=== PATIENT | female | born 1950 | race Hispanic/Latino ===

== ENCOUNTER 2018-10-16 19:58 | Emergency (ER) | payer OTHER ==
[2018-10-16] MEDS ORDERED: ACETAMINOPHEN EXTRA STRENGTH 500 MG TABLET ONE (20:19)
== END 2018-10-16 21:20 | disposition home or self-care (01) ==
LOC: EDH 19:58
DX: S82.831A Other fracture of upper and lower end of right fibula, initial encounter for closed fracture (principal); I10 Essential (primary) hypertension; E78.5 Hyperlipidemia, unspecified; E07.9 Disorder of thyroid, unspecified; Z90.710 Acquired absence of both cervix and uterus; Z88.0 Allergy status to penicillin; X58.XXXA Exposure to other specified factors, initial encounter; Y93.89 Activity, other specified; Y92.89 Other specified places as the place of occurrence of the external cause; Y99.8 Other external cause status
CPT/HCPCS: 29515; 73610

== ENCOUNTER 2019-12-10 04:52 | Emergency (ER) | payer OTHER ==
[2019-12-10 05:09] LABS: BASOPHILS % (AUTO) 0.4 % (0.0-5.0); EOSINOPHILS % (AUTO) 0.3 % (0.0-8.0); HEMATOCRIT 43.3 % (36-48); LYMPHOCYTES % (AUTO) 10.5 % (21.0-51.0); MEAN CORPUSCULAR HEMOGLOBIN 31.8 pg (27.0-33.0); MEAN CORPUSCULAR HGB CONC 33.7 g/dL (32.0-36.0); MEAN CORPUSCULAR VOLUME 94.3 fL (79-99); MONOCYTES % (AUTO) 3.6 % (3.0-13.0); NEUTROPHILS % (AUTO) 84.8 % (40.0-77.0); PLATELET COUNT (AUTO) 228 K/uL (130-400); RED BLOOD CELL COUNT(AUTO) 4.59 MIL/uL (4.00-5.50); RED CELL DISTRIBUTION WIDTH 11.8 % (11.0-15.5); WHITE BLOOD COUNT (AUTO) 13.9 K/uL (4.8-10.8)
[2019-12-10 05:24] LABS: CREATININE 0.8 mg/dL (0.5-1.5); POTASSIUM 4.4 mmol/L (3.5-5.1)
[2019-12-10 05:28] LABS: ALBUMIN 4.3 g/dL (3.5-5.0); BILIRUBIN,TOTAL 0.7 mg/dL (0.2-1.0)
[2019-12-10] MEDS ORDERED: MORPHINE SULFATE 4 MG/1ML SYG ONE ×2 (05:30→11:06)
[2019-12-10] MEDS ORDERED: ONDANSETRON HCL 4 MG/2 ML VIAL ONE ×2 (05:30→11:06)
[2019-12-10] MEDS ORDERED: ACETAMINOPHEN 325 MG TAB ONE (09:35)
[2019-12-10] MEDS ORDERED: ACETAMINOPHEN 650 MG SUPPOSITORY RC ONE (09:37)
== END 2019-12-10 13:00 | disposition short-term general hospital (02) ==
LOC: EDH 04:52
DX: K56.600 Partial intestinal obstruction, unspecified as to cause (principal); R11.2 Nausea with vomiting, unspecified; E78.5 Hyperlipidemia, unspecified; I10 Essential (primary) hypertension; Z90.49 Acquired absence of other specified parts of digestive tract; Z90.710 Acquired absence of both cervix and uterus; Z88.5 Allergy status to narcotic agent; Z88.1 Allergy status to other antibiotic agents
CPT/HCPCS: 36415; 71045 ×2; 74176; 80053; 82550; 83690; 84484; 85025; 93005; 96361; 96374; 96375; 96376; 99285; J2270 ×2; J2405 ×2

== ENCOUNTER 2023-02-14 19:02 | Emergency (ER) | payer OTHER ==
[~2023-02-14] VITALS: Ht 154.9 cm; Wt 56.2 kg
[2023-02-14 20:13] LABS: BASOPHILS # (AUTO) 0.09 K/uL (0.00-0.20); BASOPHILS % (AUTO) 0.9 % (0.0-5.0); EOSINOPHILS # (AUTO) 0.07 K/uL (0.00-0.70); EOSINOPHILS % (AUTO) 0.7 % (0.0-8.0); HEMATOCRIT 41.7 % (36-48); IMMATURE GRANULOCYTE ABSOLUTE 0.03 K/uL (0-1); LYMPHOCYTES # (AUTO) 3.5 K/uL (1.0-4.8); LYMPHOCYTES % (AUTO) 33.3 % (21.0-51.0); MEAN CORPUSCULAR HEMOGLOBIN 32.4 pg (27.0-33.0); MEAN CORPUSCULAR HGB CONC 34.8 g/dL (32.0-36.0); MEAN CORPUSCULAR VOLUME 93.3 fL (79-99); MONOCYTES # (AUTO) 0.8 K/uL (0.1-1.0); NEUTROPHILS # (AUTO) 5.9 K/uL (1.8-7.7); NEUTROPHILS % (AUTO) 56.8 % (40.0-77.0); PLATELET COUNT (AUTO) 262 K/uL (130-400); RED BLOOD CELL COUNT(AUTO) 4.47 MIL/uL (4.00-5.50); RED CELL DISTRIBUTION WIDTH 11.8 % (11.0-15.5); WHITE BLOOD COUNT (AUTO) 10.4 K/uL (4.8-10.8)
[2023-02-14 20:23] LABS: CREATININE 0.7 mg/dL (0.5-1.5); POTASSIUM 3.6 mmol/L (3.5-5.1)
[2023-02-14 20:28] LABS: ALBUMIN 4.1 g/dL (3.5-5.0); BILIRUBIN,TOTAL 0.7 mg/dL (0.2-1.0)
[2023-02-14] MEDS ORDERED: CEFTRIAXONE 1G VIAL IVPB ONE (20:30)
[2023-02-14 20:32] LABS: INR 0.93 (0.85-1.15); PROTHROMBIN TIME 10.8 SEC (9.6-11.6)
[2023-02-14 20:34] LABS: PARTIAL THROMBOPLASTIN TIME 29.1 SEC (26.3-35.5)
[2023-02-14 21:14] LABS: SARS-CoV-2, RNA, NAAT NEGATIVE SARS CoV-2 (NEGATIVE)
[2023-02-14 21:19] LABS: INFLUENZA TYPE A Negative For Type A (NEGATIVE); INFLUENZA TYPE B Negative For Type B (NEGATIVE)
[2023-02-14] MEDS ORDERED: LABETALOL 20MG VIAL IV ONE (22:00)
[2023-02-14] MEDS ORDERED: 0.9%NACL 1000ML 1,000 ML IV ONE (22:00)
[2023-02-14 22:52] VITALS: PULSE 84; RESP 18; O2SAT 99
[2023-02-14] MEDS ORDERED: LABETALOL 20MG SYG IV ONE (23:00)
[2023-02-14 23:15] LABS: APPEARANCE,URINE CLEAR (CLEAR); BILIRUBIN,URINE NEGATIVE (NEGATIVE); COLOR,URINE COLORLESS (YELLOW); GLUCOSE, URINE (UA) NEGATIVE (NEGATIVE); KETONES,URINE NEGATIVE (NEGATIVE); LEUKOCYTE ESTERASE ,URINE NEGATIVE Leu/uL (NEGATIVE); NITRATE,URINE NEGATIVE (NEGATIVE); OCCULT BLOOD,URINE NEGATIVE (NEGATIVE); PROTEIN,URINE NEGATIVE (NEGATIVE); UROBILINOGEN,URINE 0.2 mg/dL (0.2-1.0)
[2023-02-14 23:19] LABS: ADD UA MICROSCOPIC NO
[2023-02-14] MEDS ORDERED: IBUPROFEN 200 MG TAB ONE (23:38)
[2023-02-14] MEDS ORDERED: ACETAMINOPHEN 500 MG TABLET ONE (23:38)
[2023-02-14] MEDS ORDERED: IBUPROFEN 400 MG TABLET ONE (23:39)
[2023-02-14] MEDS ORDERED: IBUPROFEN 600 MG TABLET PO STA (23:42)
[2023-02-14] MEDS ORDERED: ACETAMINOPHEN 500 MG TABLET PO STA (23:42)
[2023-02-15] MEDS ORDERED: CEFU500T67 PO (00:06)
[2023-02-15 00:23] VITALS: BP 169/70
[2023-02-16] MEDS ORDERED: ESOM40CA54 PO (13:36)
[2023-02-16] MEDS ORDERED: LEVO50CA4 PO (13:36)
[2023-02-16] MEDS ORDERED: LOSA1TAB42 PO (13:36)
== END 2023-02-15 00:24 | disposition home or self-care (01) ==
LOC: EDH 19:02
DX: E86.0 Dehydration (principal); E78.00 Pure hypercholesterolemia, unspecified; I10 Essential (primary) hypertension; Z88.0 Allergy status to penicillin; Z88.1 Allergy status to other antibiotic agents; Z20.822 Contact with and (suspected) exposure to COVID-19
CPT/HCPCS: 99285; 96365; 71045; 96366; 87635; 96375; 82550; 84484; 80053; 85025; 85610; 85730; 87040 ×2; 87088; 87804 ×2; 83605; 81003; 36415; 96376; 93005; C9803; J7030; J0696; J3490

== ENCOUNTER 2023-02-16 09:21 | Observation (INO) | payer OTHER ==
[~2023-02-16] VITALS: Ht 154.9 cm; Wt 65.8 kg
[~2023-02-16 09:21] MED LIST: CEFU500T67 PO
[2023-02-16 09:58] LABS: BASOPHILS # (AUTO) 0.08 K/uL (0.00-0.20); BASOPHILS % (AUTO) 1.1 % (0.0-5.0); EOSINOPHILS # (AUTO) 0.05 K/uL (0.00-0.70); EOSINOPHILS % (AUTO) 0.7 % (0.0-8.0); IMMATURE GRANULOCYTE ABSOLUTE 0.03 K/uL (0-1); LYMPHOCYTES # (AUTO) 2.1 K/uL (1.0-4.8); LYMPHOCYTES % (AUTO) 28.2 % (21.0-51.0); MEAN CORPUSCULAR HGB CONC 34.3 g/dL (32.0-36.0); MEAN CORPUSCULAR VOLUME 93.3 fL (79-99); MONOCYTES # (AUTO) 0.6 K/uL (0.1-1.0); MONOCYTES % (AUTO) 8.3 % (3.0-13.0); NEUTROPHILS # (AUTO) 4.5 K/uL (1.8-7.7); NEUTROPHILS % (AUTO) 61.3 % (40.0-77.0); PLATELET COUNT (AUTO) 241 K/uL (130-400); RED CELL DISTRIBUTION WIDTH 11.8 % (11.0-15.5); WHITE BLOOD COUNT (AUTO) 7.3 K/uL (4.8-10.8)
[2023-02-16 10:15] LABS: BILIRUBIN,TOTAL 0.7 mg/dL (0.2-1.0); POTASSIUM 4.2 mmol/L (3.5-5.1); TOTAL PROTEIN, SERUM 7.8 g/dL (6.0-8.3)
[2023-02-16 10:21] LABS: CREATININE 0.7 mg/dL (0.5-1.5)
[2023-02-16 10:28] LABS: APPEARANCE,URINE CLEAR (CLEAR); BILIRUBIN,URINE NEGATIVE (NEGATIVE); GLUCOSE, URINE (UA) NEGATIVE (NEGATIVE); KETONES,URINE NEGATIVE (NEGATIVE); LEUKOCYTE ESTERASE ,URINE NEGATIVE Leu/uL (NEGATIVE); NITRATE,URINE NEGATIVE (NEGATIVE); OCCULT BLOOD,URINE NEGATIVE (NEGATIVE); PROTEIN,URINE NEGATIVE (NEGATIVE); UROBILINOGEN,URINE 0.2 mg/dL (0.2-1.0)
[2023-02-16] MEDS ORDERED: LABETALOL 20MG VIAL IV ONE (10:30)
[2023-02-16 10:34] LABS: ADD UA MICROSCOPIC NO; COLOR,URINE LIGHT-YELLOW (YELLOW)
[2023-02-16] MEDS ORDERED: ACETAMINOPHEN 325 MG TAB ONE (11:51)
[2023-02-16] MEDS ORDERED: HYDRALAZINE 20MG/ML VIAL IV ONE (12:00)
[2023-02-16] MEDS ORDERED: ACETAMINOPHEN 325 MG TAB PO ONE (12:00)
[2023-02-16] MEDS ORDERED: ESOM40CA54 PO (13:36)
[2023-02-16] MEDS ORDERED: LEVO50CA4 PO (13:36)
[2023-02-16] MEDS ORDERED: LOSA1TAB42 PO (13:36)
[2023-02-16] MEDS ORDERED: MORPHINE 2 MG SYG IV PRN (16:00)
[2023-02-16] MEDS ORDERED: ACETAMINOPHEN 325 MG TAB PO PRN (16:00)
[2023-02-16] MEDS ORDERED: LABETALOL 20MG SYG IV PRN (16:00)
[2023-02-16] MEDS ORDERED: ONDANSETRON 4MG INJ IV PRN (16:00)
[2023-02-16] MEDS: METOPROLOL TARTRATE 25 MG TAB PO SCH ×2 (16:41→20:54)
[2023-02-16] MEDS: APIXABAN 5 MG TABLET PO SCH ×2 (16:41→20:54)
[2023-02-16 17:00] VITALS: BP 159/75; PULSE 78; RESP 18
[2023-02-16] MEDS: ACETAMINOPHEN 325 MG TAB PO PRN ×2 (17:53→20:59)
[2023-02-16 19:00] VITALS: O2SAT 97
[2023-02-16 20:11] VITALS: BP 157/67; PULSE 67; RESP 18
[2023-02-16] MEDS: FAMOTIDINE 20MG VIAL IV SCH (20:54)
[2023-02-16 22:24] VITALS: BP 165/76; PULSE 66; RESP 18
[2023-02-17] VITALS (7 sets, daily range): BP systolic 147–171; BP diastolic 58–82; PULSE 65–75; RESP 18–19; O2SAT 94–97
[2023-02-17 04:38] LABS: BASOPHILS # (AUTO) 0.09 K/uL (0.00-0.20); BASOPHILS % (AUTO) 1.1 % (0.0-5.0); EOSINOPHILS # (AUTO) 0.11 K/uL (0.00-0.70); EOSINOPHILS % (AUTO) 1.3 % (0.0-8.0); HEMATOCRIT 39.6 % (36-48); IMMATURE GRANULOCYTE ABSOLUTE 0.02 K/uL (0-1); LYMPHOCYTES # (AUTO) 2.9 K/uL (1.0-4.8); LYMPHOCYTES % (AUTO) 34.7 % (21.0-51.0); MEAN CORPUSCULAR HEMOGLOBIN 32.3 pg (27.0-33.0); MEAN CORPUSCULAR HGB CONC 34.6 g/dL (32.0-36.0); MEAN CORPUSCULAR VOLUME 93.4 fL (79-99); MONOCYTES # (AUTO) 0.8 K/uL (0.1-1.0); MONOCYTES % (AUTO) 9.7 % (3.0-13.0); NEUTROPHILS # (AUTO) 4.4 K/uL (1.8-7.7); PLATELET COUNT (AUTO) 254 K/uL (130-400); RED BLOOD CELL COUNT(AUTO) 4.24 MIL/uL (4.00-5.50); RED CELL DISTRIBUTION WIDTH 11.9 % (11.0-15.5); WHITE BLOOD COUNT (AUTO) 8.3 K/uL (4.8-10.8)
[2023-02-17 04:56] LABS: ALANINE AMINOTRANSFERASE 16 U/L (12-78); ALBUMIN 3.5 g/dL (3.5-5.0); ASPARTATE AMINOTRANSFERASE 11 U/L (10-37); BILIRUBIN,TOTAL 0.7 mg/dL (0.2-1.0); CARBON DIOXIDE 27 mmol/L (21-32); CHLORIDE 103 mmol/L (101-111); CREATININE 0.6 mg/dL (0.5-1.5); GLOMERULAR FILTR. RATE CALC 95 mL/min (>90); GLUCOSE,RANDOM 108 mg/dL (70-105); POTASSIUM 3.5 mmol/L (3.5-5.1); SODIUM SERUM 140 mmol/L (136-145); TOTAL PROTEIN, SERUM 7.2 g/dL (6.0-8.3); UREA NITROGEN, BLOOD 11 mg/dL (7-18)
[2023-02-17 04:57] LABS: CRP QUANTITATIVE < 2.00 mg/L (0.00-9.0)
[2023-02-17 06:29] LABS: ERYTHROCYTE SEDIMENTATION RATE 6 MM/HR (0-30)
[2023-02-17] MEDS: LEVOTHYROXINE 50 MCG TABLET PO SCH (06:37)
[2023-02-17] MEDS: ACETAMINOPHEN 325 MG TAB PO PRN (06:38)
[2023-02-17] MEDS: FAMOTIDINE 20MG VIAL IV SCH ×2 (08:55→21:00)
[2023-02-17] MEDS: APIXABAN 5 MG TABLET PO SCH ×2 (08:55→21:00)
[2023-02-17] MEDS: LOSARTAN 100 MG TABLET PO SCH (08:56)
[2023-02-17] MEDS: METOPROLOL TARTRATE 25 MG TAB PO SCH ×2 (08:56→21:00)
[2023-02-17] MEDS: HYDROCHLOROTHIAZIDE 25 MG TABLET PO SCH (08:56)
[2023-02-17] MEDS ORDERED: LOSARTAN 100 MG TABLET PO SCH (09:00)
[2023-02-17] MEDS: AZITHROMYCIN 500MG+NS 250ML IVPB SCH (11:41)
[2023-02-18 03:35] LABS: HEMATOCRIT 40.5 % (36-48); MEAN CORPUSCULAR HEMOGLOBIN 32.3 pg (27.0-33.0); MEAN CORPUSCULAR HGB CONC 34.6 g/dL (32.0-36.0); MEAN CORPUSCULAR VOLUME 93.3 fL (79-99); RED BLOOD CELL COUNT(AUTO) 4.34 MIL/uL (4.00-5.50); RED CELL DISTRIBUTION WIDTH 11.9 % (11.0-15.5); WHITE BLOOD COUNT (AUTO) 8.5 K/uL (4.8-10.8)
[2023-02-18 03:49] LABS: CREATININE 0.7 mg/dL (0.5-1.5); POTASSIUM 3.7 mmol/L (3.5-5.1)
[2023-02-18] MEDS: ACETAMINOPHEN 325 MG TAB PO PRN (03:57)
[2023-02-18 04:22] VITALS: BP 147/82; PULSE 65; RESP 18
[2023-02-18] MEDS: LEVOTHYROXINE 50 MCG TABLET PO SCH (06:42)
[2023-02-18 08:00] VITALS: BP 168/72; PULSE 72; RESP 18; O2SAT 94
[2023-02-18] MEDS ORDERED: METO25 PO (08:10)
[2023-02-18] MEDS ORDERED: FAMO20TA8 PO (08:10)
[2023-02-18] MEDS ORDERED: APIX5TAB PO (08:10)
[2023-02-18] MEDS ORDERED: AZIT250T9 PO (08:12)
[2023-02-18] MEDS: METOPROLOL TARTRATE 25 MG TAB PO SCH (08:42)
[2023-02-18] MEDS: APIXABAN 5 MG TABLET PO SCH (08:42)
[2023-02-18] MEDS: LOSARTAN 100 MG TABLET PO SCH (08:42)
[2023-02-18] MEDS: HYDROCHLOROTHIAZIDE 25 MG TABLET PO SCH (08:42)
[2023-02-18] MEDS: FAMOTIDINE 20MG VIAL IV SCH (08:43)
[2023-02-18] MEDS: AZITHROMYCIN 500MG+NS 250ML IVPB SCH (10:30)
== END 2023-02-18 10:45 | disposition home or self-care (01) ==
LOC: EDH 09:21 → EDHIP 15:33 → INTOOBSV 15:33 → 4BH 17:00
PROVIDERS: ADMIT Hospitalist; ATTEND Hospitalist
DX: I16.0 Hypertensive urgency (principal); I48.0 Paroxysmal atrial fibrillation; I10 Essential (primary) hypertension; H66.91 Otitis media, unspecified, right ear; E03.9 Hypothyroidism, unspecified; E78.00 Pure hypercholesterolemia, unspecified; R53.1 Weakness; Z79.899 Other long term (current) drug therapy; Z98.890 Other specified postprocedural states
CPT/HCPCS: 96375; 99285; 84443; 84484 ×3; 80053 ×2; 85025 ×2; 82948; 83605 ×2; 81003; 36415 ×3; 71045; 93005 ×2; 96376 ×2; 96365; 96366; 85651; 86140; 93306; 93356; 80048; 85027; G0378 ×42; J3490 ×4; J0360; J0456

== ENCOUNTER 2023-12-11 13:08 | Emergency (ER) | payer OTHER ==
[~2023-12-11] VITALS: Ht 154.9 cm; Wt 60.3 kg
[~2023-12-11 13:08] MED LIST changes: +APIX5TAB PO; +AZIT250T9 PO; -CEFU500T67 PO; +ESOM40CA66 PO; +FAMO20TA8 PO; +LEVO50CA4 PO; +LOSA1TAB42 PO; +METO25 PO
[2023-12-11 14:22] LABS: BASOPHILS # (AUTO) 0.07 K/uL (0.00-0.20); BASOPHILS % (AUTO) 0.8 % (0.0-5.0); EOSINOPHILS # (AUTO) 0.01 K/uL (0.00-0.70); EOSINOPHILS % (AUTO) 0.1 % (0.0-8.0); HEMATOCRIT 42.1 % (36-48); IMMATURE GRANULOCYTE ABSOLUTE 0.04 K/uL (0-1); LYMPHOCYTES # (AUTO) 1.8 K/uL (1.0-4.8); LYMPHOCYTES % (AUTO) 20.2 % (21.0-51.0); MEAN CORPUSCULAR HEMOGLOBIN 31.4 pg (27.0-33.0); MEAN CORPUSCULAR HGB CONC 34.2 g/dL (32.0-36.0); MEAN CORPUSCULAR VOLUME 91.9 fL (79-99); MONOCYTES # (AUTO) 0.7 K/uL (0.1-1.0); MONOCYTES % (AUTO) 7.6 % (3.0-13.0); NEUTROPHILS # (AUTO) 6.4 K/uL (1.8-7.7); NEUTROPHILS % (AUTO) 70.9 % (40.0-77.0); PLATELET COUNT (AUTO) 271 K/uL (130-400); RED BLOOD CELL COUNT(AUTO) 4.58 MIL/uL (4.00-5.50); RED CELL DISTRIBUTION WIDTH 11.8 % (11.0-15.5)
[2023-12-11 14:31] LABS: POTASSIUM 3.6 mmol/L (3.5-5.1)
[2023-12-11 14:46] VITALS: BP 162/73; PULSE 87; RESP 18; O2SAT 97
[2023-12-11 14:51] LABS: APPEARANCE,URINE CLEAR (CLEAR); BILIRUBIN,URINE NEGATIVE (NEGATIVE); COLOR,URINE LIGHT-YELLOW (YELLOW); GLUCOSE, URINE (UA) NEGATIVE (NEGATIVE); KETONES,URINE NEGATIVE (NEGATIVE); LEUKOCYTE ESTERASE ,URINE NEGATIVE Leu/uL (NEGATIVE); NITRATE,URINE NEGATIVE (NEGATIVE); OCCULT BLOOD,URINE NEGATIVE (NEGATIVE); PH,URINE 7.5 (5.0-8.0); PROTEIN,URINE NEGATIVE (NEGATIVE); UROBILINOGEN,URINE 0.2 mg/dL (0.2-1.0)
[2023-12-11 14:57] LABS: ADD UA MICROSCOPIC YES
[2023-12-11 14:59] LABS: SQUAMOUS EPITHELIAL CELL,UR RARE /HPF (0-2); WBC,URINE 0-1 /HPF (0-1)
[2023-12-11] MEDS: FAMOTIDINE 20MG VIAL IV ONE (15:45)
[2023-12-11] MEDS: 0.9%NACL 1000ML 1,000 ML IV ONE (15:45)
[2023-12-11] MEDS: ONDANSETRON 4MG INJ IVP ONE (15:45)
[2023-12-11] MEDS ORDERED: ONDA-243 PO (15:59)
[2023-12-11] MEDS ORDERED: FAMO-136 PO (15:59)
[2023-12-11] MEDS ORDERED: OMEP20CA12 PO (15:59)
== END 2023-12-11 16:37 | disposition home or self-care (01) ==
LOC: EDH 13:08
DX: K29.70 Gastritis, unspecified, without bleeding (principal); I10 Essential (primary) hypertension; E11.9 Type 2 diabetes mellitus without complications; E78.00 Pure hypercholesterolemia, unspecified; K21.9 Gastro-esophageal reflux disease without esophagitis; Z79.899 Other long term (current) drug therapy; Z98.890 Other specified postprocedural states; Z88.0 Allergy status to penicillin; Z88.8 Allergy status to other drugs, medicaments and biological substances
CPT/HCPCS: 99285; 96374; 71045; 96361; 96375; 82550; 84484; 80048; 85025; 81001; 36415; 93005; J3490; J7030; J2405

== ENCOUNTER 2024-01-05 10:57 | Emergency (ER) | payer OTHER ==
[~2024-01-05] VITALS: Ht 154.9 cm; Wt 59.9 kg
[~2024-01-05 10:57] MED LIST changes: +FAMO-136 PO; +OMEP20CA12 PO; +ONDA-243 PO
[2024-01-05] MEDS: 0.9%NACL 1000ML 1,000 ML IV ONE (11:21)
[2024-01-05] MEDS: ONDANSETRON 4MG INJ IVP ONE (11:21)
[2024-01-05] MEDS: FAMOTIDINE 20MG VIAL IV ONE (11:21)
[2024-01-05] MEDS: MORPHINE 2 MG SYG IVP ONE (11:21)
[2024-01-05 11:23] LABS: BASOPHILS # (AUTO) 0.08 K/uL (0.00-0.20); BASOPHILS % (AUTO) 1.1 % (0.0-5.0); EOSINOPHILS # (AUTO) 0.04 K/uL (0.00-0.70); EOSINOPHILS % (AUTO) 0.5 % (0.0-8.0); HEMATOCRIT 40.2 % (36-48); IMMATURE GRANULOCYTE ABSOLUTE 0.03 K/uL (0-1); LYMPHOCYTES # (AUTO) 1.9 K/uL (1.0-4.8); LYMPHOCYTES % (AUTO) 25.4 % (21.0-51.0); MEAN CORPUSCULAR HEMOGLOBIN 31.3 pg (27.0-33.0); MEAN CORPUSCULAR HGB CONC 34.1 g/dL (32.0-36.0); MEAN CORPUSCULAR VOLUME 91.8 fL (79-99); MONOCYTES # (AUTO) 0.6 K/uL (0.1-1.0); MONOCYTES % (AUTO) 7.9 % (3.0-13.0); NEUTROPHILS # (AUTO) 4.7 K/uL (1.8-7.7); NEUTROPHILS % (AUTO) 64.7 % (40.0-77.0); PLATELET COUNT (AUTO) 223 K/uL (130-400); RED BLOOD CELL COUNT(AUTO) 4.38 MIL/uL (4.00-5.50); RED CELL DISTRIBUTION WIDTH 11.4 % (11.0-15.5); WHITE BLOOD COUNT (AUTO) 7.3 K/uL (4.8-10.8)
[2024-01-05 11:27] LABS: APPEARANCE,URINE CLEAR (CLEAR); BILIRUBIN,URINE NEGATIVE (NEGATIVE); COLOR,URINE COLORLESS (YELLOW); GLUCOSE, URINE (UA) NEGATIVE (NEGATIVE); KETONES,URINE NEGATIVE (NEGATIVE); LEUKOCYTE ESTERASE ,URINE NEGATIVE Leu/uL (NEGATIVE); NITRATE,URINE NEGATIVE (NEGATIVE); OCCULT BLOOD,URINE NEGATIVE (NEGATIVE); PH,URINE 6.5 (5.0-8.0); PROTEIN,URINE NEGATIVE (NEGATIVE); UROBILINOGEN,URINE 0.2 mg/dL (0.2-1.0)
[2024-01-05 11:28] LABS: ADD UA MICROSCOPIC NO
[2024-01-05 11:33] LABS: CREATININE 0.9 mg/dL (0.5-1.0); POTASSIUM 3.6 mmol/L (3.5-5.1)
[2024-01-05 11:43] LABS: ALBUMIN 4.1 g/dL (3.5-5.0); BILIRUBIN,TOTAL 0.7 mg/dL (0.2-1.0); TOTAL PROTEIN, SERUM 7.9 g/dL (6.0-8.3)
[2024-01-05] MEDS ORDERED: SUCR1TAB28 PO (12:19)
[2024-01-05 12:28] VITALS: BP 145/63; PULSE 79; RESP 16; O2SAT 99
== END 2024-01-05 12:32 | disposition home or self-care (01) ==
LOC: EDH 10:57
DX: K29.70 Gastritis, unspecified, without bleeding (principal); K21.9 Gastro-esophageal reflux disease without esophagitis; E78.00 Pure hypercholesterolemia, unspecified; I10 Essential (primary) hypertension; E03.9 Hypothyroidism, unspecified
CPT/HCPCS: 99284; 96374; 96361; 96375; 84484; 80053; 83690; 85025; 81003; 36415; 93005; J3490; J2270; J7030; J2405

== ENCOUNTER 2024-09-02 09:13 | Emergency (ER) | payer OTHER ==
[~2024-09-02] VITALS: Ht 157.5 cm; Wt 54.4 kg
[~2024-09-02 09:13] MED LIST changes: +SUCR1TAB28 PO
[2024-09-02 09:30] VITALS: BP 161/65; PULSE 80; RESP 18; TEMP 97.7; O2SAT 98
--- NOTE | 2024-09-02 09:37 | EKG ---
[facility] Test Date: 2024-09-02 Test Time: 09:31:45 Pat Name: DEBORA OHARA Department: [facility] Room: Gender: F Surgical Services Manager: [id number] : [id number] Requested By: MIESHA ESCOBAR Order Number: [id number] Reading MD: Jesus Louis Measurements Intervals [place] Rate: 80 P: 52 WV: 131 QRS: -19 QRSD: 96 T: 40 QT: 386 QTc: 445 Interpretive Statements Sinus rhythm Compared to ECG 01/05/2024 11:15:24 No significant changes Electronically Signed On 09-02-2024 12:53:42 [employer]ACTERIOLOGIST [employer] by Jesus Louis Please click the below link to view image of tracing.
[2024-09-02 09:42] LABS: BASOPHILS % (AUTO) 1.4 % (0.0-5.0); EOSINOPHILS # (AUTO) 0.06 K/uL (0.00-0.70); EOSINOPHILS % (AUTO) 0.8 % (0.0-8.0); HEMATOCRIT 45.7 % (36-48); IMMATURE GRANULOCYTE ABSOLUTE 0.03 K/uL (0-1); LYMPHOCYTES # (AUTO) 2.2 K/uL (1.0-4.8); LYMPHOCYTES % (AUTO) 30.5 % (21.0-51.0); MEAN CORPUSCULAR HEMOGLOBIN 31.9 pg (27.0-33.0); MEAN CORPUSCULAR HGB CONC 33.5 g/dL (32.0-36.0); MEAN CORPUSCULAR VOLUME 95.4 fL (79-99); MONOCYTES # (AUTO) 0.5 K/uL (0.1-1.0); MONOCYTES % (AUTO) 6.8 % (3.0-13.0); NEUTROPHILS # (AUTO) 4.3 K/uL (1.8-7.7); NEUTROPHILS % (AUTO) 60.1 % (40.0-77.0); PLATELET COUNT (AUTO) 256 K/uL (130-400); RED BLOOD CELL COUNT(AUTO) 4.79 MIL/uL (4.00-5.50); RED CELL DISTRIBUTION WIDTH 11.6 % (11.0-15.5); WHITE BLOOD COUNT (AUTO) 7.2 K/uL (4.8-10.8)
[2024-09-02] MEDS: LACTATED RINGERS 1000ML 1,000 ML IV ONE (09:45)
[2024-09-02 09:51] LABS: CREATININE 0.8 mg/dL (0.5-1.0); POTASSIUM 3.5 mmol/L (3.5-5.1)
[2024-09-02 09:52] LABS: PROTHROMBIN TIME 10.6 SEC (9.6-11.6)
[2024-09-02 09:53] LABS: APPEARANCE,URINE CLEAR (CLEAR); BILIRUBIN,URINE NEGATIVE (NEGATIVE); COLOR,URINE YELLOW (YELLOW); GLUCOSE, URINE (UA) NEGATIVE (NEGATIVE); KETONES,URINE 5 mg/dL (NEGATIVE); LEUKOCYTE ESTERASE ,URINE NEGATIVE Leu/uL (NEGATIVE); NITRATE,URINE NEGATIVE (NEGATIVE); OCCULT BLOOD,URINE NEGATIVE (NEGATIVE); PH,URINE 6.5 (5.0-8.0); PROTEIN,URINE NEGATIVE (NEGATIVE); UROBILINOGEN,URINE 0.2 mg/dL (0.2-1.0)
[2024-09-02 09:54] LABS: PARTIAL THROMBOPLASTIN TIME 28.3 SEC (26.3-35.5)
[2024-09-02 09:56] LABS: MAGNESIUM 2.1 mg/dL (1.80-2.40)
[2024-09-02 09:58] LABS: ADD UA MICROSCOPIC YES
[2024-09-02 10:00] LABS: BACTERIA,URINE RARE /HPF (None Seen); MUCUS,URINE RARE LPF (None Seen); SQUAMOUS EPITHELIAL CELL,UR FEW /HPF (0-2); WBC,URINE 0-1 /HPF (0-1)
[2024-09-02 10:11] LABS: B-TYPE NATRIURETIC PEPTIDE 19 pg/mL (0-100)
--- NOTE | 2024-09-02 10:13 | ERN ---
General Chief Complaint: Weakness Stated Complaint: GENERALIZED WEAKNESS X4 DAYS Time Seen by MD: 09:16 Source: patient History of Present Illness Initial Comments Patient is 74-year-old female coming in to be evaluated for generalized body weakness. Per patient she has been having these symptoms for about one week. She also states he feels very dehydrated. No other current complaint. She also states that couple of days ago she was diagnosed with a left-sided ear infection with a left maxillary sinus infection. She states he has not had no fever or chills. Allergies: Coded Allergies: Penicillins (Unverified Allergy, Unknown, 01/05/24) amoxicillin (Unverified Allergy, Unknown, 12/10/19) metronidazole (Unverified Allergy, Unknown, 12/10/19) Home Meds Active Scripts Sucralfate (Carafate) 1 Gram Tablet, 1 GM PO ACHS for 10 Days, #40 TAB Prov:ROYCE CAPONE NP 01/05/24 Omeprazole (Omeprazole) 20 Mg Capsule.dr, 20 MG PO DAILY for 14 Days, #14 CAP Prov:QUE CARDENAS 12/11/23 Ondansetron (Ondansetron Odt) 4 Mg Tab.rapdis, 4 MG PO BID for 10 Days, #20 TAB Prov:QUE CARDENAS 12/11/23 Famotidine (Pepcid) 20 Mg Tablet, 20 MG PO BID for 14 Days, #28 TAB Prov:QUE CARDENAS 12/11/23 Azithromycin (Azithromycin) 250 Mg Tablet, 250 MG PO DAILY for 3 Days, #3 TAB Prov:ALOK WEBB NP 02/18/23 Famotidine (Famotidine) 20 Mg Tablet, 20 MG PO DAILY for 30 Days, #30 TAB Prov:ALOK WEBB NP 02/18/23 Metoprolol Tartrate (Lopressor) 25 Mg Tab, 25 MG PO BID for 30 Days, #60 TAB Prov:ALOK WEBB NP 02/18/23 Apixaban (Eliquis) 5 Mg Tablet, 5 MG PO BID for 30 Days, #60 TAB Prov:ALOK WEBB NP 02/18/23 Reported Medications Levothyroxine Sodium (Levothyroxine) 50 Mcg Capsule, 50 MCG PO DAILY, CAP 02/16/23 Losartan/Hydrochlorothiazide (Losartan-Hctz 100-12.5 mg Tab) 1 Each Tablet, 1 EACH PO DAILY, TAB 02/16/23 Esomeprazole Magnesium (Esomeprazole Magnesium) 40 Mg Capsule.dr, 40 MG PO DAILY, CAP 02/16/23 Past Medical History Past Medical History: GERD, High Cholesterol, Hypertension, Hypothyroid Medical History Other: THYROID Past Surgical History: Other Surgical History Other: OVARIAN / BACK SURG Female( History) History: Not Applicable ROS Dictation CONSTITUTIONAL: No chills, no fever, weakness, no diaphoresis, no malaise. HEAD/FACE: No signs of trauma. EENT: No eye pain, no blurred vision, no tearing, no double vision, no ear pain, no ear discharge, no nose pain, no nasal congestion, no throat pain, no throat swelling, no mouth pain. RESPIRATORY: No cough, no orthopnea, no SOB, no stridor, no wheezing. CARDIOVASCULAR: No chest pain, no edema, no palpitations, no syncope. GASTROINTESTINAL/ABDOMINAL: No abdominal pain, no constipation, no diarrhea, no nausea, no vomiting. GENITOURINARY: No abnormal discharge, no dysuria, no frequent urination, no hematuria. No complaints of pain in the genitals. MUSCULOSKELETAL: No back pain, no gout, no joint pain, no joint swelling, no muscle pain, no muscle stiffness, no neck pain. INTEGUMENTARY: No change in color, no change in hair/nails, no dryness, no lesion, no lumps, no rash. NEUROLOGICAL/PSYCH: No anxiety, not depressed, no emotional problem, no headache, no numbness, no pre-existing deficit, no history of seizures, no t remors, no weakness. HEMATOLOGIC/LYMPHATIC: Not anemic, no history of blood clots, no apparent bleeding, no bruising, glands not swollen. All Systems Negative, Except as Noted. Physical Exam Physical Exam Dictation VITAL SIGNS: Reviewed. GENERAL APPEARANCE: Alert, oriented x3, no acute distress, obese. HEAD AND FACE: Non-traumatic. EYES: PERRL, pink conjunctivas, eyelid no trauma, anterior chamber clear. EARS: Pinnas intact and no signs of trauma or erythema. Ear canals clear and no discharge. TMs no erythema. NOSE: No discharge, no bleeding. OROPHARYNX: Mouth normal, teeth no caries, tongue pink. Pharynx clear, no erythema. Tonsils no exudates, no abscesses noted. Mucous membrane moist. NECK: Supple, non-tender, no thyromegaly, no masses, no JVD, no bruits. BREAST: Deferred. CHEST: No tenderness, no crepitus, no paradoxical movement, no retractions. LUNGS: Clear, well-ventilated, symmetric, no rales, no wheezing, no rhonchi, no stridor, good breath sounds bilaterally. HEART: Regular rate, regular rhythm, no murmur, no gallops. VASCULAR: No peripheral edema. ABDOMEN: Soft, positive bowel sounds, nondistended, no guarding, nontender, no rebound, no masses no hepatomegaly, no splenomegaly, no Waddell's sign, no hernias. RECTAL: Deferred. GENITAL: Deferred. NEUROLOGICAL: Normal speech, gross motor function intact, gross sensory function intact. MUSCULOSKELETAL: Neck nontender, full range of motion, back nontender, full range of motion. EXTREMITIES: Nontender, full range of motion. SKIN: Color pink, dry, no turgor, no rash, no lacerations, no abrasions, no contusions. LYMPHATICS: Deferred. Results Laboratory and Microbiology Lab and Micro Result Laboratory Tests Test 09/02/24 09:33 White Blood Count 7.2 K/uL (4.8-10.8) Red Blood Count 4.79 MIL/uL (4.00-5.50) Hemoglobin 15.3 g/dL (12.0-16.0) Hematocrit 45.7 % (36-48) Mean Corpuscular Volume 95.4 fL (79-99) Mean Corpuscular Hemoglobin 31.9 pg (27.0-33.0) Mean Corpuscular Hemoglobin Concent 33.5 g/dL (32.0-36.0) Red Cell Distribution Width 11.6 % (11.0-15.5) Platelet Count 256 K/uL (130-400) Mean Platelet Volume 9.9 fL (7.5-10.5) Immature Granulocyte % (Auto) 0.4 % (0-1) Neutrophils (%) (Auto) 60.1 % (40.0-77.0) Lymphocytes (%) (Auto) 30.5 % (21.0-51.0) Monocytes (%) (Auto) 6.8 % (3.0-13.0) Eosinophils (%) (Auto) 0.8 % (0.0-8.0) Basophils (%) (Auto) 1.4 % (0.0-5.0) Neutrophils # (Auto) 4.3 K/uL (1.8-7.7) Lymphocytes # (Auto) 2.2 K/uL (1.0-4.8) Monocytes # (Auto) 0.5 K/uL (0.1-1.0) Eosinophils # (Auto) 0.06 K/uL (0.00-0.70) Basophils # (Auto) 0.10 K/uL (0.00-0.20) Absolute Immature Granulocyte (auto 0.03 K/uL (0-1) Nucleated Red Blood Cells 0.0 % (0.0-0.19) Prothrombin Time 10.6 SEC (9.6-11.6) Prothromb Time International Ratio 1.00 (0.85-1.15) Activated Partial Thromboplast Time 28.3 SEC (26.3-35.5) Urine Color YELLOW (YELLOW) Urine Appearance CLEAR (CLEAR) Urine pH 6.5 (5.0-8.0) Urine Specific [place] 1.016 (1.001-1.031) Urine Protein NEGATIVE mg/dL (NEGATIVE) Urine Glucose (UA) NEGATIVE mg/dL (NEGATIVE) Urine Ketones 5 mg/dL (NEGATIVE) H Urine Occult Blood NEGATIVE (NEGATIVE) Urine Nitrate NEGATIVE (NEGATIVE) Urine Bilirubin NEGATIVE mg/dL (NEGATIVE) Urine Urobilinogen 0.2 mg/dL (0.2-1.0) Urine Leukocyte Esterase NEGATIVE [place]/uL Urine RBC 2-5 /HPF (0-1) H Urine WBC 0-1 /HPF (0-1) Urine Squamous Epithelial Cells FEW /HPF (0-2) Urine Bacteria RARE /HPF (None Seen) Sodium Level 136 mmol/L (136-145) Potassium Level 3.5 mmol/L (3.5-5.1) Chloride Level 99 mmol/L (101-111) L Carbon Dioxide Level 32 mmol/L (21-32) Blood Urea Nitrogen 12 mg/dL (7-18) Creatinine 0.8 mg/dL (0.5-1.0) Glomerular Filtration Rate Calc 77 mL/min (>90) Random Glucose 116 mg/dL (70-105) H Total Calcium 10.0 mg/dL (8.5-10.1) Magnesium Level 2.10 mg/dL (1.80-2.40) Total Creatine Kinase 55 U/L (21-232) # Troponin I High Sensitivity 6 ng/L (4-50) B-Type Natriuretic Peptide 19 pg/mL (0-100) Labs Reviewed?: Yes EKG/XRAY/US/CT/MRI EKG Comment 09/02/2024 time 9:31 a.m. Ventricular rate 80 Sinus rhythm [place] [address] wave elevation or depression X-RAY Comment chest xray- nad MDM MDM: Differential diagnosis: Dehydration, generalized body weakness, fever, UTI, Patient is a 74-year-old female coming in to be evaluated for generalized body weakness. Patient states he feels very dehydrated patient received IV fluids states he feels much better. We will be discharged in stable condition she was recently diagnosed with a sinusitis. Patient was currently taking antibiotics I advised her to continue taking antibiotics and to follow up with PCP accordingly. Patient will be discharged in stable condition ED Course Orders Procedure Category Date Status Time Cbc With Differential LAB 09/02/24 Complete 09:18 Prothrombin Time With LAB 09/02/24 Complete INR 09:18 B-Type Natriuretic LAB 09/02/24 Complete Peptide 09:18 Chest 1vw RAD 09/02/24 Taken 09:18 12 Lead Ekg Tracing- EKG 09/02/24 Complete Technical 09:18 Lactated Ringers PHA 09/02/24 Complete 1000ml (Lactated 09:30 Magnesium LAB 09/02/24 Complete 09:18 Creatine Kinase, Total LAB 09/02/24 Complete 09:18 Troponin I High LAB 09/02/24 Complete Sensitivity 09:18 Urinalysis Profile LAB 09/02/24 Complete 09:18 Partial LAB 09/02/24 Complete Thromboplastin Time 09:18 Basic Metabolic Panel LAB 09/02/24 Complete 09:18 Acetaminophen 500mg PHA 09/02/24 Complete Tab (Tylenol 500mg T 10:30 Current Medications Medications (Trade) Dose Ordered Sig/Fouzia Route PRN Reason Start Time Stop Time Status Last Admin Dose Admin Acetaminophen (TYLenol 500MG TAB) 500 mg ONCE ONCE PO 09/02/24 10:30 09/02/24 10:31 DC 09/02/24 10:24 Lactated Ringer's 1,000 ml @ 0 mls/hr ONCE ONCE IV 09/02/24 09:30 09/02/24 09:31 DC 09/02/24 09:45 Vital Signs Date Time Temp Pulse Resp B/P (MAP) Pulse Ox O2 Delivery O2 Flow Rate FiO2 09/02/24 09:30 97.7 80 18 161/65 98 Room Air* 0 21 09/02/24 09:16 96.1 90 16 154/74 96 0 DX & DISP Disposition: Discharge Departure Impression: Primary Impression: Dehydration Condition: Stable Additional Instructions: FOLLOW-UP WITH PRIMARY CARE PROVIDER IN 1 TO 2 DAYS. TAKE MEDICATIONS DIRECTED HERE IN THE EMERGENCY ROOM. OKAY TO CONTINUE HOME MEDICATIONS UNLESS OTHERWISE DISCUSSED DURING YOUR VISIT IN THE EMERGENCY ROOM TODAY. RETURN TO YOUR NEAREST EMERGENCY ROOM IF SYMPTOMS WORSEN OR IF THERE IS NO IMPROVEMENT. CALL 911 IF YOU NEED IMMEDIATE ASSISTANCE. TAKE TYLENOL [id number] NEEDED AND IF NO CONTRAINDICATIONS ARE PRESENT. INCREASE ORAL HYDRATION. A WOUND CULTURE OR URINE CULTURE WAS ORDERED HERE IN THE EMERGENCY ROOM DEPARTMENT PLEASE FOLLOW-UP WITH PRIMARY CARE PROVIDER AND ADVISE THEM TO GET REPEAT PORTS FROM OUR FACILITY. IF YOU HAD ANY GENO WRAP/SPLINTS THAT WERE APPLIED HERE, PLEASE DO NOT REMOVE THEM UNTIL YOU SEE YOUR PRIMARY CARE OR SPECIALTY. Referrals: Referrals: NADEEM LEONARD (PCP) Time of Disposition: 11:04 MIESHA ESCOBAR MD Sep 02, 2024 10:13
[2024-09-02] MEDS: acetaMINOPHEN 500 MG TABLET PO ONE (10:24)
== END 2024-09-02 11:00 | disposition home or self-care (01) ==
LOC: EDH 09:13
DX: E86.0 Dehydration (principal); E03.9 Hypothyroidism, unspecified; E78.00 Pure hypercholesterolemia, unspecified; I10 Essential (primary) hypertension; K21.9 Gastro-esophageal reflux disease without esophagitis; Z79.01 Long term (current) use of anticoagulants; Z79.890 Hormone replacement therapy; Z79.899 Other long term (current) drug therapy; Z88.0 Allergy status to penicillin; Z88.1 Allergy status to other antibiotic agents
CPT/HCPCS: 99285; 96360; 71045; 82550; 83735; 84484; 80048; 83880; 85025; 85610; 85730; 81001; 36415; 93005; J7120